=== PATIENT | female | born 1960 | race Caucasian/White ===

== ENCOUNTER 2018-09-26 20:02 | Emergency (ER) | payer MEDICAID, OTHER ==
[~2018-09-26] VITALS: Ht 165.1 cm; Wt 103.4 kg
[2018-09-26] MEDS ORDERED: ALBU18HF2 IH (20:13)
--- NOTE | 2018-09-26 20:16 | NUR ---
Pt ambulated to ER with c/o shortness of breath due to asthma x 3 weeks, but worst in the last 4 days. Pt states was using her inhaler, but not effective. SA02 97% room air. Appears in no apparent distress. AAOx4. No chest pain. No GI/ distress.
[2018-09-26] MEDS ORDERED: ALBUTEROL SULFATE 2.5 MG/3 ML NEBU NEB ONE ×3 (20:30→22:00)
[2018-09-26] MEDS ORDERED: ALBUTEROL SULFATE 2.5 MG/3 ML NEBU ONE ×3 (20:34→22:06)
--- NOTE | 2018-09-26 20:35 | NUR ---
RT at bedside for breathing tx.
[2018-09-26] MEDS ORDERED: predniSONE 20 MG TABLET PO ONE (21:15)
[2018-09-26] MEDS ORDERED: predniSONE 20 MG TABLET ONE (21:24)
[2018-09-26] MEDS ORDERED: IPRATROPIUM BROMIDE 0.5 MG/2.5 ML NEBU NEB ONE (22:00)
[2018-09-26] MEDS ORDERED: IPRATROPIUM BROMIDE 0.5 MG/2.5 ML NEBU ONE (22:06)
--- NOTE | 2018-09-26 22:15 | NUR ---
EKG done. RT at bedside for continuous breathing tx.
--- NOTE | 2018-09-26 23:24 | NUR ---
Continuous breathing tx finished. Pt states she still feels better but still wheezing. SA02 95% room air.
[2018-09-26 23:47] LABS: BASOPHILS % (AUTO) 0.6 % (0.0-2.0); CREATININE 0.8 mg/dL (0.6-1.3); EOSINOPHILS # (AUTO) 0.2 K/uL (0.0-0.7); EOSINOPHILS % (AUTO) 3.4 % (0.0-7.0); HEMATOCRIT 38.6 % (31.2-41.9); HEMOGLOBIN 12.6 g/dL (10.9-14.3); LYMPHOCYTES % (AUTO) 28.3 % (20.5-51.5); MEAN CORPUSCULAR HEMOGLOBIN 26.3 uug (24.7-32.8); MEAN CORPUSCULAR HGB CONC 33 g/dL (32.3-35.6); MEAN CORPUSCULAR VOLUME 80.7 fL (75.5-95.3); MONOCYTES # (AUTO) 0.3 K/uL (2.0-10.0); MONOCYTES % (AUTO) 4.9 % (0.0-11.0); NEUTROPHILS # (AUTO) 4.4 K/uL (1.8-8.9); NEUTROPHILS % (AUTO) 62.8 % (38.5-71.5); PLATELET COUNT (AUTO) 257 K/uL (179-408); POTASSIUM 3.8 mmol/L (3.5-5.1); RED BLOOD CELL COUNT(AUTO) 4.79 MIL/uL (3.63-4.92)
[2018-09-27] LABS: BILIRUBIN,DIRECT 0.1 mg/dL (0.0-0.2); BILIRUBIN,TOTAL 0.2 mg/dL (0.2-1.0); TOTAL PROTEIN, SERUM 7.4 g/dL (6.4-8.2)
[2018-09-27] MEDS ORDERED: ALBUTEROL SULFATE 2.5 MG/3 ML NEBU NEB ONE (00:15)
[2018-09-27] MEDS ORDERED: ALBUTEROL SULFATE 2.5 MG/3 ML NEBU ONE (00:22)
--- NOTE | 2018-09-27 00:23 | NUR ---
Pt receiving another breathing tx. Pending call back from ([facility]).
--- NOTE | 2018-09-27 00:32 | NUR ---
Clinicals + face sheet faxed over to Nikki ([facility]) fax no. [phone]
[2018-09-27] MEDS ORDERED: IBUPROFEN 400 MG TABLET ONE (00:45)
--- NOTE | 2018-09-27 01:00 | NUR ---
Received transfer information: Pt accepted for admission at [facility]. Room 204-A. Accepting MD: Dr. Benites (phone no. [phone]) Authorization no. [id number] [place] - nursing crew supervisor phone no. [phone]
--- NOTE | 2018-09-27 01:05 | NUR ---
Juan madrid for transport to [facility]. Trip #[id number]. CORDELIA @ [id number].
--- NOTE | 2018-09-27 01:12 | NUR ---
Report given to Sarah (nursing beam department supervisor) at [facility]. Pt signed transfer acknowledgment form.
--- NOTE | 2018-09-27 02:35 | NUR ---
[facility] here to transport pt to [facility]. No acute distress noted. Vital signs are stable. Pt states she feels better. All belongings w pt.
== END 2018-09-27 02:39 | disposition short-term general hospital (02) ==
LOC: ER 20:02
DX: J45.902 Unspecified asthma with status asthmaticus (principal); Z79.899 Other long term (current) drug therapy
CPT/HCPCS: 36415; 71045; 80048; 80076; 83880; 84484; 85025; 93005; 94640 ×2; 94644 ×2; 99291; J7512; 70030-TC; A4663; J3590

== ENCOUNTER 2018-10-28 18:13 | Emergency (ER) | payer OTHER ==
[~2018-10-28 18:13] MED LIST: ALBU18HF2 IH
== END 2018-10-28 18:25 | disposition left against medical advice (07) ==
LOC: ER 18:16
DX: S60.011A Contusion of right thumb without damage to nail, initial encounter (principal); J45.909 Unspecified asthma, uncomplicated; Z79.899 Other long term (current) drug therapy; W20.8XXA Other cause of strike by thrown, projected or falling object, initial encounter; Y93.89 Activity, other specified; Y92.89 Other specified places as the place of occurrence of the external cause; Y99.0 Civilian activity done for income or pay; Z53.21 Procedure and treatment not carried out due to patient leaving prior to being seen by health care provider

== ENCOUNTER 2018-10-28 18:58 | Emergency (ER) | payer OTHER ==
[~2018-10-28] VITALS: Ht 165.1 cm; Wt 108.4 kg
[2018-10-28] MEDS ORDERED: TDAP DIPH,PERTUSS,TET VAC/PF 0.5 ML DISP.SYRIN IM ONE ×2 (19:21→19:30)
[2018-10-28] MEDS ORDERED: NEOMY/BACITRA/POLYMYXIN B OINT UD PACKET TP ONE ×2 (19:22→19:30)
[2018-10-28 19:32] VITALS: BP 129/77
== END 2018-10-28 19:32 | disposition home or self-care (01) ==
LOC: ER 18:59
DX: S60.011A Contusion of right thumb without damage to nail, initial encounter (principal); J45.909 Unspecified asthma, uncomplicated; Z79.899 Other long term (current) drug therapy; W20.8XXA Other cause of strike by thrown, projected or falling object, initial encounter; Y93.89 Activity, other specified; Y92.89 Other specified places as the place of occurrence of the external cause; Y99.0 Civilian activity done for income or pay
CPT/HCPCS: 90715; A4663